=== PATIENT | female | born 1970 | race Two or more races ===

== ENCOUNTER 2020-09-29 08:00 | Outpatient (CLI) | payer OTHER | END 2020-09-29 15:00 | disposition home or self-care (01) | LOC: LAB 08:00 → EDSTATUS 10-06 07:30 → AMB-ENDOS 10-06 07:30 | PROVIDERS: ATTEND Colon & Rectal Surgery | DX: Z20.828 Contact with and (suspected) exposure to other viral communicable diseases (principal) ==

== ENCOUNTER 2020-11-17 06:58 | Day surgery (SDC) | payer OTHER | END 2020-11-17 11:10 | disposition home or self-care (01) | LOC: AMB-ENDOS 06:58 | PROVIDERS: ATTEND Colon & Rectal Surgery | DX: K62.89 Other specified diseases of anus and rectum (principal); K64.8 Other hemorrhoids; Z12.11 Encounter for screening for malignant neoplasm of colon ==

== ENCOUNTER 2020-12-02 05:22 | Day surgery (SDC) | payer OTHER ==
[~2020-12-02] VITALS: Ht 165.1 cm; Wt 94.3 kg
[~2020-12-02 05:22] MED LIST: SINGULAIR10 MG PO; TOPROL XL25 M1 PO
== END 2020-12-02 13:25 | disposition home or self-care (01) ==
LOC: CIR.AMB 05:22 → EDSTATUS 13:00 → SURH 13:00 → CIR.AMB 13:00
PROVIDERS: ATTEND Obstetrics & Gynecology Gynecologic Oncology
DX: D27.1 Benign neoplasm of left ovary (principal); Z20.828 Contact with and (suspected) exposure to other viral communicable diseases; N73.6 Female pelvic peritoneal adhesions (postinfective)

== ENCOUNTER 2020-12-13 14:40 | Emergency (ER) | payer OTHER ==
[~2020-12-13] VITALS: Ht 165.1 cm; Wt 86.2 kg
[2020-12-13] MEDS ORDERED: ADVIL LIQUI-GE200 MG (16:12)
== END 2020-12-13 21:06 | disposition home or self-care (01) ==
LOC: ER 14:40
DX: R10.2 Pelvic and perineal pain (principal)

== ENCOUNTER 2021-12-07 07:00 | Day surgery (SDC) | payer OTHER ==
[~2021-12-07 07:00] MED LIST changes: +ADVIL LIQUI-GE200 MG
== END 2021-12-07 11:50 | disposition home or self-care (01) ==
LOC: AMB-ENDOS 07:00
PROVIDERS: ATTEND Colon & Rectal Surgery
DX: K57.30 Diverticulosis of large intestine without perforation or abscess without bleeding (principal)